=== PATIENT | male | born 1940 | race Caucasian/White ===

== ENCOUNTER 2016-12-03 21:11 | Observation (INO) | payer OTHER ==
[~2016-12-03] VITALS: Ht 172.7 cm; Wt 107.0 kg
[~2016-12-03 21:11] MED LIST: NOHOMEMEDS; SPIRIVA1 INHALATI IH
[2016-12-04 00:39] LABS: HEMATOCRIT 39.7 % (38.0-50.0); MCH 29.9 PG (29.0-34.0); MCHC 33.2 G/DL (30.0-36.0); MEAN PLAT.VOLUME 9.4 uM^3 (9.0-12.4); PLATELET COUNT 171 K/uL (156-360); RBC DIS.WIDTH-CV 12.8 % (11.8-14.6); RBC DIS.WIDTH-SD 42.5 % (39-53); RED BLOOD COUNT 4.41 M/uL (4.00-5.50); WHITE BLOOD COUNT 9.7 K/uL (4.1-10.2)
[2016-12-04 00:46] LABS: PROTHROMBIN TIME 11.3 SEC (10.2-12.9)
[2016-12-04 00:48] LABS: CHLORIDE 106 mEq/L (99-109); POTASSIUM 3.8 mEq/L (3.7-5.4); SODIUM 142 mEq/L (136-147)
[2016-12-04 00:49] LABS: PTT 31.6 SEC (25-37)
[2016-12-04 00:50] LABS: GLUCOSE 125 mg/dL (70-99)
[2016-12-04 00:51] LABS: ANION GAP 11 MEQ/L (2-14)
[2016-12-04 00:54] LABS: GFR ESTIMATE (CALCULATED) > 59 mL/min/
[2016-12-04 00:55] LABS: UREA NITROGEN (BUN) 19 mg/dL (9-23)
[2016-12-04 06:01] VITALS: BP 194/88
[2016-12-04 07:02] LABS: Estimated Average Glucose 114 mg/dL (70-123); HEMOGLOBIN A1c (GLYCOHEMOGLOB) 5.6 % HGB (Below 5.7)
[2016-12-04 07:59] LABS: POINT-OF-CARE METER ID UU14174225
[2016-12-04 08:26] VITALS: BP 162/71
[2016-12-04 08:54] LABS: HDL CHOLESTEROL 36 MG/DL (Desirable>=40); LDL CHOLESTEROL 33 mg/dL (Desirable<100); NON-HDL CHOLESTEROL 87 mg/dL (Desirable<160); SAMPLE HEMOLYSIS CHECK 0; SAMPLE ICTERIC CHECK 0; SAMPLE LIPEMIA CHECK 1; TOTAL CHOLESTEROL 123 mg/dL (Desirable<200); TRIGLYCERIDES 272 MG/DL (Normal: <150)
[2016-12-04 12:00] LABS: POINT-OF-CARE METER ID UU14174225
[2016-12-04 12:04] VITALS: BP 185/89
[2016-12-04 15:10] VITALS: BP 157/95
[2016-12-04 17:10] LABS: POINT-OF-CARE METER ID UU13113717
[2016-12-04 19:18] VITALS: BP 176/84
[2016-12-04 21:08] LABS: POINT-OF-CARE METER ID UU14188625
[2016-12-04 23:25] VITALS: BP 136/94
[2016-12-05 04:02] VITALS: BP 139/85
[2016-12-05 06:36] LABS: ANION GAP 12 MEQ/L (2-14); CHLORIDE 101 MEQ/L (99-109); GFR ESTIMATE (CALCULATED) > 59 mL/min/; GLUCOSE 152 mg/dL (70-99); POTASSIUM 4.3 MEQ/L (3.7-5.4); SAMPLE HEMOLYSIS CHECK 0; SAMPLE ICTERIC CHECK 0; SAMPLE LIPEMIA CHECK 0; SODIUM 136 MEQ/L (136-147); UREA NITROGEN (BUN) 17 mg/dL (9-23)
[2016-12-05 07:04] LABS: HEMATOCRIT 40.8 % (38.0-50.0); MCH 29.3 PG (29.0-34.0); MCHC 33.6 G/DL (30.0-36.0); MCV 87.2 FL (86-99); MEAN PLAT.VOLUME 9.3 uM^3 (9.0-12.4); RBC DIS.WIDTH-CV 12.6 % (11.8-14.6); RED BLOOD COUNT 4.68 M/uL (4.00-5.50)
[2016-12-05 07:07] LABS: PLATELET COUNT 229 K/uL (156-360)
[2016-12-05 08:20] VITALS: BP 157/80
[2016-12-05] MEDS ORDERED: PRAVASTATIN SOD80 MG PO (11:07)
[2016-12-05] MEDS ORDERED: METFORMIN HCL500 MG PO (11:08)
[2016-12-05] MEDS ORDERED: LISINOPRIL20 MG PO (11:09)
[2016-12-05] MEDS ORDERED: VENTOLIN HFA18 GM IH (11:10)
[2016-12-05] MEDS ORDERED: ATORVASTATIN CA40 MG PO (11:18)
[2016-12-05] MEDS ORDERED: ASPIR-LOW81 MG PO (11:18)
== END 2016-12-05 11:34 | disposition home or self-care (01) ==
LOC: EME 21:11 → 5SOUTH 12-04 02:52 → EDOF 12-04 02:52 → 5SOUTH 12-04 02:52 → ENRESERV 12-04 02:59 → EDOF 12-04 03:24 → ENRESERV 12-04 03:25 → 5SOUTH 12-04 05:44
PROVIDERS: Hospitalist; Physician Assistant
DX: I63.031 Cerebral infarction due to thrombosis of right carotid artery (principal); I65.22 Occlusion and stenosis of left carotid artery; I72.3 Aneurysm of iliac artery; E11.9 Type 2 diabetes mellitus without complications; I10 Essential (primary) hypertension; J44.9 Chronic obstructive pulmonary disease, unspecified; E78.5 Hyperlipidemia, unspecified; Z87.891 Personal history of nicotine dependence; Z79.4 Long term (current) use of insulin; Z79.82 Long term (current) use of aspirin; Z82.49 Family history of ischemic heart disease and other diseases of the circulatory system
CPT/HCPCS: 70450; 70498; 70551; 80048; 80061; 82948; 83036; 85027; 85610; 85730; 92610 GN; 93005; 93306; 93880; 93926; 99281; 99285; G0378; J1100; J1650; J1815; J7050